=== PATIENT | female | born 1980 | race African-American/Black ===

== ENCOUNTER 2021-09-21 17:09 | Emergency (ER) | payer OTHER ==
[2021-09-21] MEDS ORDERED: Sodium Chloride 0.9% 10 ML Syringe FLUSH PRN ×2 (17:11)
[2021-09-21] MEDS ORDERED: LORazepam 2 MG/ML SDV IVPUSH ONE (17:14)
[2021-09-21] MEDS ORDERED: Sodium Chloride 0.9% 1,000 ML IV SCH (17:45)
[2021-09-21] MEDS ORDERED: Ondansetron 4 MG/2 ML SDV IVPUSH ONE (17:45)
[2021-09-21] MEDS ORDERED: Naloxone 0.4 MG/ML SDV IVPUSH ONE (17:46)
[2021-09-21] MEDS ORDERED: Iopamidol 612 MG/ML 100 ML Bottle IV SCH (18:30)
[2021-09-21] MEDS ORDERED: Sodium Chloride 0.9% 75 ML IV SCH (18:30)
== END 2021-09-21 20:40 ==
LOC: JP.ED 17:09
DX: T40.601A Poisoning by unspecified narcotics, accidental (unintentional), initial encounter (principal); I50.9 Heart failure, unspecified
CPT/HCPCS: 36415; 70450; 71045; 71045-26; 74177; 80053; 80305-QW; 83605; 83880; 84484; 85025; 93005; 93010; 96374; 96375; 99283; 99285-25; J2310; J2405; Q9967

== ENCOUNTER 2021-09-26 19:27 | Emergency (ER) | payer OTHER ==
[2021-09-26] MEDS ORDERED: Acetaminophen 1,000 MG in Premix Bag 1 BAG IV ONE (19:54)
[2021-09-26] MEDS ORDERED: Ondansetron 4 MG/2 ML SDV IVPUSH ONE (19:54)
[2021-09-26] MEDS ORDERED: Nitroglycerin 0.4 MG Tab.SL SL ONE ×2 (19:58→22:38)
[2021-09-26] MEDS ORDERED: Aspirin 81 MG Tab.Chew PO ONE (19:58)
[2021-09-26] MEDS ORDERED: Famotidine 20 MG Tab PO ONE (20:29)
[2021-09-26] MEDS ORDERED: Ibuprofen 400 MG Tab PO ONE (20:30)
[2021-09-26] MEDS ORDERED: Pantoprazole 40 MG Delayed-Release Granules 1 Packet PO STA (20:31)
[2021-09-26] MEDS ORDERED: Morphine 2 MG/ML SYRINGE IVPUSH ONE (23:56)
[2021-09-27] MEDS ORDERED: Iopamidol 612 MG/ML 100 ML Bottle IV STA (00:16)
[2021-09-27] MEDS ORDERED: Sodium Chloride 0.9% 80 ML IV STA (00:17)
[2021-09-27] MEDS ORDERED: Morphine 2 MG/ML SYRINGE IVPUSH ONE (02:10)
== END 2021-09-27 02:24 ==
LOC: JP.ED 19:27
DX: D64.89 Other specified anemias (principal); I21.A1 Myocardial infarction type 2; F11.20 Opioid dependence, uncomplicated; F14.19 Cocaine abuse with unspecified cocaine-induced disorder; I11.0 Hypertensive heart disease with heart failure; I50.9 Heart failure, unspecified; Z72.0 Tobacco use; Z79.899 Other long term (current) drug therapy
CPT/HCPCS: 36415; 71045; 74160; 80048; 80076; 80305-QW; 83690; 84484; 85025; 93005; 93010; 96365; 96375; 96376; 99283; 99285-25; A9270-GY; J0131; J2270; J2405; Q9967

== ENCOUNTER 2021-09-27 17:54 | Emergency (ER) | payer OTHER ==
[2021-09-27] MEDS: Nitroglycerin 0.4 MG Tab.SL SL ONE (19:00)
[2021-09-27] MEDS: Pantoprazole 40 MG Vial IVPUSH ONE (19:01)
[2021-09-27] MEDS: Morphine 2 MG/ML SYRINGE IVPUSH ONE (19:04)
[2021-09-27] MEDS: Magnesium Sulfate/Water 2 GM in Premix Bag 1 BAG IV ONE (19:19)
[2021-09-27] MEDS: Metoclopramide 10 MG Tab PO ONE (19:40)
[2021-09-27] MEDS: Alum Hydrox/Mag Hydrox/Simeth 15 ML, Lidocaine 2% 15 ML PO ONE ×2 (21:02)
== END 2021-09-27 22:02 ==
LOC: JP.ED 17:54
DX: I21.A1 Myocardial infarction type 2 (principal); I49.3 Ventricular premature depolarization; F12.10 Cannabis abuse, uncomplicated; R10.13 Epigastric pain; E83.42 Hypomagnesemia; R94.31 Abnormal electrocardiogram [ECG] [EKG]; J45.909 Unspecified asthma, uncomplicated; K21.9 Gastro-esophageal reflux disease without esophagitis; Z79.899 Other long term (current) drug therapy; Z72.0 Tobacco use
CPT/HCPCS: 36415; 80053; 83690; 83735; 84484; 85025; 93005; 93010; 96365; 96366; 96375; 99283; 99285-25; A9270-GY; C9113; J2270; J3475

== ENCOUNTER 2023-08-16 14:52 | Emergency (ER) | payer MEDICAID, OTHER ==
[2023-08-16 16:10] LABS: APPEARANCE,URINE CLEAR (CLEAR); BILIRUBIN,URINE NEGATIVE (NEGATIVE); COLOR,URINE YELLOW (YELLOW); GLUCOSE,URINE NEGATIVE (NEGATIVE); KETONES,URINE NEGATIVE (NEGATIVE); LEUKOCYTE ESTERASE,URINE NEGATIVE (NEGATIVE); NITRITE,URINE NEGATIVE (NEGATIVE); OCCULT BLOOD,URINE NEGATIVE (NEGATIVE); PROTEIN,URINE NEGATIVE (NEGATIVE); UROBILINOGEN,URINE 0.2 EU/dL (0.2-1.0)
[2023-08-16] MEDS ORDERED: Aspirin 81 MG Tab.Chew PO ONE (16:13)
[2023-08-16 16:16] LABS: AMORPHOUS SEDIMENT,URINE NOT SEEN; BACTERIA,URINE MODERATE; EPITHELIAL CELLS,URINE MODERATE; MUCUS,URINE FEW; RBC,URINE 0-5 (0-5); WBC,URINE 0-5 (0-5)
[2023-08-16 16:17] LABS: AMPHETAMINES SCREEN, URINE NEGATIVE (NEGATIVE); BARBITURATE SCREEN,URINE NEGATIVE (NEGATIVE); BENZODIAZEPINES SCREEN,URINE NEGATIVE (NEGATIVE); METHADONE SCREEN, URINE NEGATIVE (NEGATIVE); METHAMPHETAMINES SCREEN, URINE NEGATIVE (NEGATIVE); OXYCODONE SCREEN,URINE NEGATIVE (NEGATIVE); PROPOXYPHENE SCREEN,URINE NEGATIVE (NEGATIVE); THC SCREEN,URINE 50 NG/ML NEGATIVE (NEGATIVE)
[2023-08-16 16:26] LABS: BASOPHILS ABSOLUTE AUTO 0.05 K/uL (0.00-0.10); BASOPHILS PERCENT AUTO 1.4 % (0.1-1.3); EOSINOPHILS ABSOLUTE AUTO 0.09 K/uL (0.00-0.40); EOSINOPHILS PERCENT AUTO 2.5 % (0.0-5.4); HEMATOCRIT 34.6 % (34.3-46.0); HEMOGLOBIN 10.6 g/dL (11.2-15.5); IMMATURE GRAN PERCENT AUTO 0.3 % (0.0-0.7); LYMPHOCYTES ABSOLUTE AUTO 1.32 K/uL (0.8-3.3); MEAN CORPUSCULAR HEMOGLOBIN 26.3 pg (31.6-35.5); MEAN CORPUSCULAR HGB CONC 30.6 g/dL (31.6-35.5); MEAN CORPUSCULAR VOLUME 85.9 fL (81.4-99.0); MONOCYTES ABSOLUTE AUTO 0.38 K/uL (0.20-0.90); MONOCYTES PERCENT AUTO 10.6 % (3.3-12.6); NEUTROPHILS ABSOLUTE AUTO 1.72 K/uL (1.0-7.6); NEUTROPHILS PERCENT AUTO 48.2 % (40.0-78.1); PLATELET COUNT,PLT 240 K/uL (130-375); RED BLOOD CELL COUNT 4.03 M/uL (3.77-5.24); WHITE BLOOD CELL COUNT,WBC 3.6 K/uL (3.2-11.0)
[2023-08-16 16:28] LABS: IMMATURE GRAN ABSOLUTE AUTO 0.01 K/uL (0.00-0.23)
[2023-08-16 16:43] LABS: INR 1.2; PROTHROMBIN TIME 11.9 sec (9.2-10.6)
[2023-08-16 16:57] LABS: A/G RATIO 0.7 (1.2-2.2); ALANINE AMINOTRANSFERASE,ALT 19 U/L (12-78); ALBUMIN 3.2 g/dL (3.4-5.0); ALKALINE PHOSPHATASE 62 U/L (46-116); ASPARTATE AMNIOTRANSFERASE,AST 19 U/L (15-37); BILIRUBIN TOTAL 0.3 mg/dL (0.2-1.0); BLOOD UREA NITROGEN,BUN 26 mg/dL (7-18); CALCIUM 8.7 mg/dL (8.5-10.1); CARBON DIOXIDE,CO2 28 mmol/L (21-32); CHLORIDE,CL 106 mmol/L (100-108); CREATININE 1.1 mg/dL (0.6-1.0); EST CRCL DRUG DOSING (CG) 48.73 mL/min; ESTIMATED GFR 63 mL/min (>60); GLUCOSE RANDOM 93 mg/dL (74-106); POTASSIUM,K 5.3 mmol/L (3.6-5.2); PRO B-TYPE NATRIUR PEPT,BNPPRO 16 pg/mL (5-125); PROTEIN TOTAL,TP 7.7 g/dL (6.4-8.2); SODIUM,NA 142 mmol/L (140-148); TROPONIN I HIGH SENSITIVITY 34.6 pg/mL (<=60.3)
[2023-08-16 17:00] LABS: ANION GAP 13.3 mmol/L (5.0-14.0)
[2023-08-16 17:58] LABS: CORONAVIRUS COVID-19 NAA NEGATIVE (NEGATIVE); INFLUENZA A NAA NEGATIVE (NEGATIVE); INFLUENZA B NAA NEGATIVE (NEGATIVE); RESPIRATORY SYNCYTIAL VIR NAA NEGATIVE (NEGATIVE)
[2023-08-16] MEDS ORDERED: Acetaminophen 500 MG Tab PO ONE (18:06)
== END 2023-08-16 18:16 ==
LOC: JP.ED 14:52
DX: R07.89 Other chest pain (principal); I10 Essential (primary) hypertension; K21.9 Gastro-esophageal reflux disease without esophagitis; Z79.899 Other long term (current) drug therapy; Z91.030 Bee allergy status; Z88.8 Allergy status to other drugs, medicaments and biological substances; Z87.891 Personal history of nicotine dependence
CPT/HCPCS: 0241U; 36415; 71045; 80053; 80305; 81001; 83880; 84145; 84484; 85025; 85379; 85610; 93005; 93010; 99283; 99285; A9270